=== PATIENT | female | born 1955 ===

== ENCOUNTER 2017-12-03 09:19 | Observation (INO) | payer MEDICAID ==
[2017-12-03] MEDS ORDERED: Sodium Chloride 0.9% 1,000 ML IV STA (09:58)
--- NOTE | 2017-12-03 10:15 | ED PDOC ---
HPI: Neurologic - General Time Seen by Provider: 12/03/17 09:25 Chief Complaint (Nursing): GI Problem Chief Complaint (Provider): Dizziness, Chest Pain Source: patient Exam Limitations: no limitations - History of Present Illness Timing/Duration: 4-6 hours (6am) Allergies/Adverse Reactions: Allergies No Known Allergies Allergy (Verified 06/28/16 12:26) Home Medications: Ambulatory Orders Nitrofurantoin Macrocrystals [Macrobid] 100 mg PO BID #20 cap 06/28/16 Phenazopyridine [Pyridium] 200 mg PO TID #6 tab 06/28/16 Additional Complaint(s): Ailyn is a 62 y/o female with a history of migraines and anxiety who presents to the ED complaining of dizziness and chest pain since 6am. Patient states that when the symptoms started she felt lightheaded, dizzy, and developed chest pain that resolved after a few minutes. She continues to have lightheadedness that is worse when moving or walking. Patient also complains of associated nausea. Reviewed triage note and patient denied abdominal pain, headache or vomiting. She is not lightheaded now but when she moves she gets it. Patient also complains of low blood pressure and feeling generally weak, with not enough energy that started this morning as well. She denies numbness, difficulty breathing, or syncope. PMD: Abubamaria victoria NIHSS Stroke Scale - Date/Time Evaluation Performed Date Performed: 12/03/17 Time Performed: 09:40 When Was NIHSS Performed: Baseline - How Severe is the Stroke Level of Consciousness: 0=Alert LOC to Questions: 0=Both comments correct LOC to commands: 0=Obeys both correctly Best Gaze: 0=Normal Visual: 0=No visual loss Facial: 0=Normal Motor Arm - Left: 0=No drift Motor Arm - Right: 0=No drift Motor Leg - Left: 0=No drift Motor Leg - Right: 0=No drift Limb Ataxia: 0=Absent Sensory: 0=Normal Best Language: 0=No aphasia Dysarthia: 0=Normal articulation Extinction & Inattention (Neglect): 0=Normal, no object Score: 0 rTPA Inclusion/Exclusion - Refusal of Treatment Patient Refused Treatment: No - Inclusion Criteria for Altepase Patient is 18 years or Older: Yes The Clinical Diagnosis of Ischemic Stroke That is Causing a Potentially Disabling Neurological Deficit: No Time of Onset is Well Established to be Less Than 270 Minute Before Treatment Would Begin: No Risk/Benefit Discussed With Patient/Family Member Present: No Past Medical History Reviewed: Historical Data, Nursing Documentation, Vital Signs Vital Signs: Last Vital Signs Temp 97.0 F L 12/03/17 09:26 Pulse 79 12/03/17 09:26 Resp 16 12/03/17 09:26 BP 94/60 L 12/03/17 09:26 Pulse Ox 98 12/03/17 09:26 - Medical History PMH: Anxiety, Migraine, Osteoporosis Other PMH: Chiari Malformation Type I - Surgical History Surgical History: - Family History Family History: States: No Known Family Hx - Home Medications Home Medications: Ambulatory Orders Medication Instructions Recorded Nitrofurantoin Macrocrystals 100 mg PO BID #20 cap 06/28/16 [Macrobid] Phenazopyridine [Pyridium] 200 mg PO TID #6 tab 06/28/16 - Allergies Allergies/Adverse Reactions: Allergies Allergy/AdvReac Type Severity Reaction Status Date / Time No Known Allergies Allergy Verified 06/28/16 12:26 Review of Systems ROS Statement: Except As Marked, All Systems Reviewed And Found Negative Constitutional: Positive for: Weakness Eyes: Negative for: Vision Change Cardiovascular: Positive for: Chest Pain (resolved) Respiratory: Negative for: Shortness of Breath Gastrointestinal: Positive for: Nausea. Negative for: Vomiting Neurological: Positive for: Dizziness, Other ((+) lightheaded, (-) syncope). Negative for: Weakness, Numbness, Headache Psych: Positive for: Anxiety Physical Exam - Reviewed Nursing Documentation Reviewed: Yes Vital Signs Reviewed: Yes - Physical Exam Appears: Positive for: Well, Non-toxic, No Acute Distress Head Exam: Positive for: ATRAUMATIC, NORMAL INSPECTION, NORMOCEPHALIC Skin: Positive for: Normal Color, Warm, Dry. Negative for: Rash Eye Exam: Positive for: Normal appearance, EOMI, PERRL. Negative for: Nystagmus ENT: Positive for: Normal ENT Inspection Neck: Positive for: Normal, Painless ROM, Supple Cardiovascular/Chest: Positive for: Regular Rate, Rhythm. Negative for: Murmur Respiratory: Positive for: Normal Breath Sounds. Negative for: Respiratory Distress Gastrointestinal/Abdominal: Positive for: Normal Exam, Soft. Negative for: Tenderness Extremity: Positive for: Normal ROM. Negative for: Pedal Edema, Deformity Neurologic/Psych: Positive for: Alert, cardiac cath rn II-XII, Oriented, Cerebellar Tests ( normal), Gait (steady). Negative for: Motor/Sensory Deficits - Laboratory Results Result Diagrams: 12/03/17 10:30 12/03/17 10:30 - ECG ECG: Positive for: Interpreted By Me, Viewed By Me ECG Rhythm: Positive for: Normal QRS, Normal ST Segment, Sinus Rhythm. Negative for: ST/T Changes Rate: 67 O2 Sat by Pulse Oximetry: 98 (RA) Pulse Ox Interpretation: Normal - Progress Re-evaluation Time: 12:35 Condition: Re-examined, Improved Medical Decision Making Medical Decision Making: Time: 9:57 Initial Impression: Chest pain and dizziness --Differential diagnoses include vertigo, orthostatic hypotension, ACS associated with chest pain, atypical migraine, anemia, UTI. --Vertigo could be peripheral such as benign positional vertigo, vestibular neuritis less likely considering exam, central vertigo also low suspicion due to normal neurological exam Initial Plan: --CT Head w/o Contrast --EKG --BMP --Troponin --Urine Dip --CBC --Antivert --Reglan --IV Fluids --Orthostatic Blood Pressure Time: 13:11 CT HEAD FINDINGS: HEMORRHAGE: No intracranial hemorrhage. BRAIN: No mass effect or edema. Low-lying cerebellar tonsils, below the level of the foramen magnum. No evidence of acute infarct. VENTRICLES: Unremarkable. No hydrocephalus. CALVARIUM: Unremarkable. PARANASAL SINUSES: Unremarkable as visualized. No significant inflammatory changes. MASTOID AIR CELLS: Unremarkable as visualized. No inflammatory changes. OTHER FINDINGS: None. 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 No intracranial mass, hemorrhage or evidence of acute infarct. Scribe Attestation: Documented by Hector Barrett, acting as a scribe for Dr. Ayush Roman MD. Provider Scribe Attestation: All medical record entries made by the Scribe were at my direction and personally dictated by me. I have reviewed the chart and agree that the record accurately reflects my personal performance of the history, physical exam, medical decision making, and the department course for this patient. I have also personally directed, reviewed, and agree with the discharge instructions and disposition. Disposition - Clinical Impression Clinical Impression: Dizziness, Near syncope, Chest pain - Patient ED Disposition Is Patient to be Admitted: Yes Discussed With DrGillian: Noris Mejía Counseled Patient/Family Regarding: Studies Performed, Diagnosis - Disposition Disposition Time: 12:40 Condition: FAIR - Pt Status Changed To: Hospital Disposition Of: Observation - POA Present On Arrival: None
[2017-12-03 10:46] LABS: BASO % 0.2 % (0.0-2.0); EOS # 0.1 K/uL (0.0-0.7); EOS % 0.8 % (0.0-4.0); HEMOGLOBIN 13.8 g/dL (12.0-16.0); LYMPH # 0.9 K/uL (1.0-4.3); LYMPH % 8.9 % (20.0-40.0); MEAN CELL VOLUME 91.4 fl (81.0-99.0); MEAN CORPUSCULAR HEMOGLOBIN 30.8 pg (27.0-31.0); MEAN CORPUSCULAR HGB CONC 33.7 g/dL (33.0-37.0); MEAN PLATELET VOLUME 8.9 fl (7.2-11.7); MONO # 0.5 K/uL (0.0-0.8); MONO % 4.7 % (0.0-10.0); NEUT # 8.5 K/uL (1.8-7.0); NEUT % 85.4 % (50.0-75.0); PLATELET COUNT 279 K/uL (130-400); RBC 4.47 Mil/uL (3.80-5.20); RED CELL DISTRIBUTION WIDTH 13.4 % (11.5-14.5); WHITE BLOOD COUNT 9.9 K/uL (4.8-10.8)
[2017-12-03 10:55] LABS: BLOOD UREA NITROGEN 14 mg/dl (7-17); CALCIUM 9.2 mg/dL (8.4-10.2); GFR AFRICAN-AMERICAN > 60; GFR NON-AFRICAN AMERICAN > 60
[2017-12-03 12:39] LABS: EOSINOPHIL 1 % (0-7); LYMPHOCYTE 9 % (20-50); MONOCYTE 5 % (0-10); NEUTROPHIL 85 % (42-75); PLATELET ESTIMATE NORMAL (NORMAL); TOTAL CELLS COUNTED 100
--- NOTE | 2017-12-03 13:13 | CT ---
PROCEDURE: CT HEAD WITHOUT CONTRAST. HISTORY: dizziness COMPARISON: 10/14/2014 TECHNIQUE: Axial computed tomography images were obtained through the head/brain without intravenous contrast. Radiation dose: Total exam DLP = 769.39 mGy-cm. This CT exam was performed using one or more of the following dose reduction techniques: Automated exposure control, adjustment of the mA and/or kV according to patient size, and/or use of iterative reconstruction technique. FINDINGS: HEMORRHAGE: No intracranial hemorrhage. BRAIN: No mass effect or edema. Low-lying cerebellar tonsils, below the level of the foramen magnum. No evidence of acute infarct. VENTRICLES: Unremarkable. No hydrocephalus. CALVARIUM: Unremarkable. PARANASAL SINUSES: Unremarkable as visualized. No significant inflammatory changes. MASTOID AIR CELLS: Unremarkable as visualized. No inflammatory changes. OTHER FINDINGS: None. 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 No intracranial mass, hemorrhage or evidence of acute infarct.
--- NOTE | 2017-12-03 18:58 | CP.PCM.HP ---
History of Present Illness - History of Present Illness History of Present Illness: Cc: Chest pain, dizziness A 62 year old female with a pmhx of migraines and anxiety who presented to the ED with c/o of dizziness and chest pain since 6am. Patient states that when the symptoms started she felt lightheaded, dizzy, and developed chest pain that resolved after a few minutes. States she continues to have lightheadedness that is worse when moving or walking. States symptoms are associated with nausea. Patient denies headache, abdominal pain, vomiting or diarrhea. Denies SOB, numbness or syncope. States she is not lightheaded now but when she moves she gets it. Patient also c/o of being weak and not having enough energy, this also started today. Present on Admission - Present on Admission Any Indicators Present on Admission: No Review of Systems - Review of Systems All systems: reviewed and no additional remarkable complaints except (as stated) Past Patient History - Past Social History Smoking Status: Never Smoked - NEUROLOGICAL Hx Neurological Disorder: Yes - MUSCULOSKELETAL/RHEUMATOLOGICAL Hx Musculoskeletal Disorders: Yes - PSYCHIATRIC Hx Psychophysiologic Disorder: Yes - SURGICAL HISTORY Hx Section: Yes - ANESTHESIA Hx Anesthesia: Yes Hx Anesthesia Reactions: No Meds Home Medications: Home Medication List Medication Instructions Recorded Confirmed Type Ibuprofen [Motrin Tab] 600 mg PO Q6 PRN tab 12/04/17 Rx Allergies/Adverse Reactions: Allergies Allergy/AdvReac Type Severity Reaction Status Date / Time No Known Allergies Allergy Verified 06/28/16 12:26 Physical Exam - Constitutional Appears: Well, No Acute Distress - Head Exam Head Exam: ATRAUMATIC, NORMOCEPHALIC - Eye Exam Eye Exam: EOMI, Normal appearance Pupil Exam: NORMAL ACCOMODATION - ENT Exam ENT Exam: Mucous Membranes Moist - Neck Exam Neck exam: Positive for: Full Rom, Normal Inspection - Respiratory Exam Respiratory Exam: Clear to Auscultation Bilateral, NORMAL BREATHING PATTERN - Cardiovascular Exam Cardiovascular Exam: REGULAR RHYTHM, +S1, +S2 - GI/Abdominal Exam GI & Abdominal Exam: Normal Bowel Sounds, Soft - Rectal Exam Rectal Exam: Deferred - Extremities Exam Extremities exam: Positive for: full ROM, normal inspection - Back Exam Back exam: NORMAL INSPECTION - Neurological Exam Neurological exam: Alert, Normal Gait, Oriented x3 - Psychiatric Exam Psychiatric exam: Normal Affect, Normal Mood - Skin Skin Exam: Normal Color, Warm Results - Vital Signs Recent Vital Signs: Last Vital Signs Temp 97.8 F 12/03/17 16:57 Pulse 75 12/03/17 16:57 Resp 20 12/03/17 16:57 BP 102/64 12/03/17 16:57 Pulse Ox 99 12/03/17 16:57 - Labs Result Diagrams: 12/03/17 10:30 12/04/17 05:10 Labs: Laboratory Results - last 24 hr 12/03/17 12/03/17 10:30 10:30 WBC 9.9 D RBC 4.47 Hgb 13.8 Hct 40.9 MCV 91.4 MCH 30.8 MCHC 33.7 RDW 13.4 Plt Count 279 MPV 8.9 Neut % (Auto) 85.4 H Lymph % (Auto) 8.9 L Craig % (Auto) 4.7 Eos % (Auto) 0.8 Baso % (Auto) 0.2 Neut # (Auto) 8.5 H Lymph # (Auto) 0.9 L Craig # (Auto) 0.5 Eos # (Auto) 0.1 Baso # (Auto) 0.0 Neutrophils % (Manual) 85 H Lymphocytes % (Manual) 9 L Monocytes % (Manual) 5 Eosinophils % (Manual) 1 Platelet Estimate Normal RBC Morphology Normal Sodium 140 Potassium 4.0 Chloride 102 Carbon Dioxide 27 Anion Gap 15 BUN 14 Creatinine 0.6 L Est GFR ( Amer) > 60 Est GFR (Non-Af Amer) > 60 Random Glucose 106 H Calcium 9.2 Troponin I < 0.0120 - Imaging and Cardiology CT scan - head Additional comment: PROCEDURE: CT HEAD WITHOUT CONTRAST. HISTORY: dizziness COMPARISON: 10/14/2014 TECHNIQUE: Axial computed tomography images were obtained through the head/brain without intravenous contrast. Radiation dose: Total exam DLP = 769.39 mGy-cm. This CT exam was performed using one or more of the following dose reduction techniques: Automated exposure control, adjustment of the mA and/or kV according to patient size, and/or use of iterative reconstruction technique. FINDINGS: HEMORRHAGE: No intracranial hemorrhage. BRAIN: No mass effect or edema. Low-lying cerebellar tonsils, below the level of the foramen magnum. No evidence of acute infarct. VENTRICLES: Unremarkable. No hydrocephalus. CALVARIUM: Unremarkable. PARANASAL SINUSES: Unremarkable as visualized. No significant inflammatory changes. MASTOID AIR CELLS: Unremarkable as visualized. No inflammatory changes. OTHER FINDINGS: None. 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 No intracranial mass, hemorrhage or evidence of acute infarct. Assessment & Plan (1) Atypical chest pain Assessment and Plan: Troponins negative x 3 CT head - no acute findings Echo- trace mitral/tricuspid regurgitation D/c home Outpatient f/u with cardiology Status: Acute
[2017-12-03] MEDS ORDERED: Pneumococcal 23-Valent Vaccine IM ONE (21:00)
[2017-12-03] MEDS ORDERED: Influenza Vaccine 18yr & older 0.5 ML/45 MCG SYR IM ONE (22:00)
[2017-12-03] MEDS: Sodium Chloride 0.9% 1,000 ML IV SCH (22:31)
[2017-12-04 05:37] LABS: HDL CHOLESTEROL 57 MG/DL (30-70)
[2017-12-04 05:48] LABS: LDL CHOLESTEROL 98 mg/dL (0-129)
[2017-12-04] MEDS: Sodium Chloride 0.9% 1,000 ML IV SCH (07:50)
--- NOTE | 2017-12-04 09:04 | CARD ---
APPROVED REPORT EKG Measurement Heart [id number] <Conclusion> Normal sinus rhythm Normal ECG
--- NOTE | 2017-12-04 10:42 | CARD ---
APPROVED REPORT EXAM: Two-dimensional and M-mode echocardiogram with Doppler and color Doppler. Other Information Quality : GoodRhythm : NSR INDICATION Chest Pain Syncope 2D DIMENSIONS IVSd0.63 (0.7-1.1cm)LVDd3.90 (3.9-5.9cm) LVOT Diameter1.98 (1.8-2.4cm)PWd0.70 (0.7-1.1cm) IVSs0.69 (0.8-1.2cm)LVDs2.48 (2.5-4.0cm) FS (%) 36.5 %PWs1.28 (0.8-1.2cm) M-Mode DIMENSIONS Left Atrium (MM)3.66 (2.5-4.0cm)IVSd0.57 (0.7-1.1cm) Aortic Root2.82 (2.2-3.7cm)LVDd4.68 (4.0-5.6cm) Aortic Cusp Exc.1.77 (1.5-2.0cm)PWd0.69 (0.7-1.1cm) IVSs1.19 cmFS (%) 49 % LVDs2.39 (2.0-3.8cm)PWs1.15 cm Mitral Valve MV E Zujcmbpp07.0cm/sMV DECEL [id number] A Yrsoqqom25.7cm/s MV WGT99hjI/A ratio1.2MVA (PHT)3.94cm2 TDI Lateral E' Peak V11.24cm/sMedial E' Peak V10.84cm/sE/Lateral E'8.7 E/Medial E'9.0 Pulmonary Valve PV Peak Hahxnqgg826.0cm/s Tricuspid Valve TR Peak Nqrdovuw356hn/sRAP JVJSVGCL53hrJvJE Peak Gr.21mmHg [id number] LEFT VENTRICLE The left ventricle is normal in size. There is normal left ventricular wall thickness. The left ventricular function is normal. The left ventricular ejection fraction is - 75%. There is normal LV segmental wall motion. The left ventricular diastolic function is normal. No left ventricle thrombus noted on this study. There is no ventricular septal defect visualized. There is no left ventricular aneurysm. There is no mass noted in the left ventricle. RIGHT VENTRICLE The right ventricle is normal size. There is normal right ventricular wall thickness. The right ventricular systolic function is normal. ATRIA The left atrium size is normal. There is no thrombus suspected in the left atrium. The right atrium size is normal. The interatrial septum is intact with no evidence for an atrial septal defect. AORTIC VALVE The aortic valve is normal in structure. No aortic regurgitation is present. There is no aortic valvular stenosis. MITRAL VALVE The mitral valve is normal in structure. There is no evidence of mitral valve prolapse. There is no mitral valve stenosis. Mitral regurgitation is trace. TRICUSPID VALVE The tricuspid valve is normal in structure. There is mild tricuspid regurgitation. Right ventricular systolic pressure is estimated at 31 mmHg. There is no tricuspid valve prolapse or vegetation. There is no tricuspid valve stenosis. PULMONIC VALVE The pulmonary valve is normal in structure. There is no pulmonic valvular regurgitation. GREAT VESSELS The aortic root is normal in size. The IVC is normal in size and collapses >50% with inspiration. PERICARDIAL EFFUSION The pericardium appears normal. There is no pleural effusion. <Conclusion> The left ventricle is normal in size and wall thickness. The left ventricular function is normal. The left ventricular ejection fraction is - 75%. The left atrium, right ventricle and right atrium are normal in size. The mitral, aortic and tricuspid valves are normal. There is trace mitral regurgitation and mild tricuspid regurgitation.
--- NOTE | 2017-12-04 13:45 | RAD ---
PROCEDURE: Radiographs of the Right Shoulder HISTORY: RUE pain with ROM COMPARISON: No prior. FINDINGS: BONES: Normal. No fracture. JOINTS: SOFT TISSUES: Normal. OTHER FINDINGS: None. IMPRESSION: Right shoulder arthrosis. No fracture, lytic lesion or calcific rotator cuff tendinopathy or calcific bursitis.
[2017-12-04 16:23] VITALS: BP 125/70; TEMP 99.4
[2017-12-04 17:06] VITALS: PULSE 95; RESP 16; O2SAT 98
--- NOTE | 2017-12-08 14:05 | CP.PCM.DIS ---
Provider - Provider Date of Admission: 12/03/17 12:41 Attending physician: Noris Mejía MD Time Spent in preparation of Discharge (in minutes): 25 Diagnosis - Discharge Diagnosis (1) Atypical chest pain Status: Acute Hospital Course - Lab Results Lab Results: Most Recent Lab Values WBC 9.9 K/uL (4.8-10.8) D 12/03/17 10:30 RBC 4.47 Mil/uL (3.80-5.20) 12/03/17 10:30 Hgb 13.8 g/dL (12.0-16.0) 12/03/17 10:30 Hct 40.9 % (34.0-47.0) 12/03/17 10:30 MCV 91.4 fl (81.0-99.0) 12/03/17 10:30 MCH 30.8 pg (27.0-31.0) 12/03/17 10:30 MCHC 33.7 g/dL (33.0-37.0) 12/03/17 10:30 RDW 13.4 % (11.5-14.5) 12/03/17 10:30 Plt Count 279 K/uL (130-400) 12/03/17 10:30 MPV 8.9 fl (7.2-11.7) 12/03/17 10:30 Neut % (Auto) 85.4 % (50.0-75.0) H 12/03/17 10:30 Lymph % (Auto) 8.9 % (20.0-40.0) L 12/03/17 10:30 Lamb % (Auto) 4.7 % (0.0-10.0) 12/03/17 10:30 Eos % (Auto) 0.8 % (0.0-4.0) 12/03/17 10:30 Baso % (Auto) 0.2 % (0.0-2.0) 12/03/17 10:30 Neut # (Auto) 8.5 K/uL (1.8-7.0) H 12/03/17 10:30 Lymph # (Auto) 0.9 K/uL (1.0-4.3) L 12/03/17 10:30 Lamb # (Auto) 0.5 K/uL (0.0-0.8) 12/03/17 10:30 Eos # (Auto) 0.1 K/uL (0.0-0.7) 12/03/17 10:30 Baso # (Auto) 0.0 K/uL (0.0-0.2) 12/03/17 10:30 Neutrophils % (Manual) 85 % (42-75) H 12/03/17 10:30 Lymphocytes % (Manual) 9 % (20-50) L 12/03/17 10:30 Monocytes % (Manual) 5 % (0-10) 12/03/17 10:30 Eosinophils % (Manual) 1 % (0-7) 12/03/17 10:30 Platelet Estimate Normal (NORMAL) 12/03/17 10:30 RBC Morphology Normal (NORMAL) 12/03/17 10:30 Sodium 144 mmol/l (132-148) 12/04/17 05:10 Potassium 4.0 MMOL/L (3.6-5.0) 12/03/17 10:30 Chloride 102 mmol/L (98-107) 12/03/17 10:30 Carbon Dioxide 27 mmol/L (22-30) 12/03/17 10:30 Anion Gap 15 (10-20) 12/03/17 10:30 BUN 14 mg/dl (7-17) 12/03/17 10:30 Creatinine 0.6 mg/dl (0.7-1.2) L 12/03/17 10:30 Est GFR ( Amer) > 60 12/03/17 10:30 Est GFR (Non-Af Amer) > 60 12/03/17 10:30 Random Glucose 106 mg/dL (65-105) H 12/03/17 10:30 Calcium 9.2 mg/dL (8.4-10.2) 12/03/17 10:30 Troponin I < 0.0120 ng/mL (0.00-0.120) 12/04/17 12:35 Triglycerides 101 mg/DL (0-149) 12/04/17 05:10 Cholesterol 184 mg/dL (0-199) 12/04/17 05:10 LDL Cholesterol Direct 98 mg/dL (0-129) 12/04/17 05:10 HDL Cholesterol 57 MG/DL (30-70) 12/04/17 05:10 TSH 3rd Generation 1.67 mIU/ML (0.46-4.68) 12/04/17 05:10 - Hospital Course Hospital Course: 62 year old female with pmhx of migraine and anxiety admitted with atypical chest pain. cardiac work up negative. Patient discharged home with outpt f/u instructions Discharge Exam - Head Exam Head Exam: ATRAUMATIC, NORMOCEPHALIC - Respiratory Exam Respiratory Exam: Clear to PA & Lateral, NORMAL BREATHING PATTERN - Cardiovascular Exam Cardiovascular Exam: REGULAR RHYTHM, +S1, +S2 - GI/Abdominal Exam GI & Abdominal Exam: Normal Bowel Sounds - Neurological Exam Neurological exam: Alert, Oriented x3 - Psychiatric Exam Psychiatric exam: Normal Affect, Normal Mood - Skin Skin Exam: Normal Color, Warm Discharge Plan - Follow Up Plan Condition: STABLE Disposition: HOME/ ROUTINE Instructions: Chest Pain (DC), Syncope (Fainting) (DC), Near Fainting (DC) Additional Instructions: follow up with pmd in 1 week. Referrals: Shaik Waters MD [Family Provider] -
== END 2017-12-04 18:00 | disposition home or self-care (01) ==
LOC: H.ER 09:19 → H.ERHOLD 12:41 → H.TEL 16:36
PROVIDERS: ADMIT Internal Medicine; ATTEND Internal Medicine
DX: R07.89 Other chest pain (principal); G43.909 Migraine, unspecified, not intractable, without status migrainosus; F41.9 Anxiety disorder, unspecified; M81.0 Age-related osteoporosis without current pathological fracture; Z23 Encounter for immunization; G93.5 Compression of brain
CPT/HCPCS: 36415; 70450; 73030; 80048; 80061; 84295; 84443; 84484; 85025; 90471; 90732; 93005; 93306; 96361; 96374; 97165; 99285; G0378; G8987; G8988; J2765; J7040; Q2035